=== PATIENT | female | born 1990 | race Caucasian/White ===

== ENCOUNTER 2020-05-05 04:24 | Inpatient (IN) | payer MEDICAID ==
[~2020-05-05] VITALS: Ht 154.9 cm; Wt 83.0 kg
[2020-05-05] MEDS ORDERED: DEXT 5%/LR + PITOCIN 20UNITS/L 1,000 ML IV SCH (05:38)
[2020-05-05] MEDS ORDERED: NALOXONE HCL 0.4 MG/ML 1ML VIAL IM PRN (05:45)
[2020-05-05] MEDS ORDERED: METHYLERGONOVINE MALEATE 0.2 MG/ML IM PRN (05:45)
[2020-05-05] MEDS ORDERED: BUTORPHANOL TARTRATE 2 MG/ML VIAL IV PRN (05:45)
[2020-05-05] MEDS ORDERED: LIDOCAINE HCL 1% 20ML VIAL (Pyxis) INJ INFIL SCH (05:45)
[2020-05-05] MEDS ORDERED: PREN-176 PO (05:45)
[2020-05-05] MEDS ORDERED: FERR-71 PO (05:45)
[2020-05-05] MEDS: LACTATED RINGERS 1,000 ML IV SCH ×2 (06:28→07:39)
[2020-05-05 07:25] LABS: BASOPHILS % 0.2 % (0.0-2.0); EOSINOPHILS % 0.6 % (0.0-5.0); HEMATOCRIT. 33.9 % (36.0-48.0); HEMOGLOBIN. 11.5 g/dL (12.0-16.0); LYMPHOCYTES % 17.4 % (20.0-50.0); MEAN CORPUSCULAR HEMOGLOBIN 30.6 pg (28.0-32.0); MEAN CORPUSCULAR VOLUME 90.4 fL (81.0-99.0); MEAN PLATELET VOLUME 10.1 fl (7.4-10.4); MONOCYTES % 5.7 % (2.0-8.0); NEUTROPHILS % 76.1 % (40.0-76.0); PLATELET 181 x1000/uL (130-400); RED BLOOD CELL COUNT 3.75 mill/uL (4.2-5.4); RED CELL DISTRIBUTION WIDTH 14.3 % (11.6-14.6)
[2020-05-05 07:28] LABS: CLARITY URINE CLEAR (CLEAR); COLOR URINE YELLOW (YELLOW); KETONES URINE NEGATIVE (NEGATIVE); LEUKOCYTE ESTERASE URINE 1+ (NEGATIVE); NITRITE URINE NEGATIVE (NEGATIVE); OCCULT BLOOD URINE 3+ (NEGATIVE); PROTEIN URINE NEGATIVE (NEGATIVE)
[2020-05-05 07:36] LABS: PARTIAL THROMBOPLASTIN TIME 31.1 sec (23.4-31.0); PROTHROMBIN TIME 10.2 sec (9.6-11.0)
[2020-05-05 07:40] LABS: *AMPHETAMINES SCREEN URINE NEGATIVE (NEGATIVE); *BARBITURATES SCREEN URINE NEGATIVE (NEGATIVE); *BENZODIAZEPINES SCREEN URINE NEGATIVE (NEGATIVE); *COCAINE SCREEN URINE NEGATIVE (NEGATIVE)
[2020-05-05 07:41] LABS: CANNABINOID URINE SCREEN NEGATIVE (NEGATIVE); METHADONE URINE SCREEN NEGATIVE (NEGATIVE); OPIATES URINE SCREEN NEGATIVE (NEGATIVE); PHENCYCLIDINE URINE SCREEN NEGATIVE (NEGATIVE)
[2020-05-05 08:36] LABS: HEPATITIS B SURFACE ANTIGEN NEGATIVE
[2020-05-05] MEDS ORDERED: LANOLIN OINT 7GM TUBE TOP PRN (14:15)
[2020-05-05] MEDS ORDERED: BISACODYL 10MG SUPP PR PRN (14:15)
[2020-05-05] MEDS ORDERED: IBUPROFEN 400MG TABLET PO PRN (14:15)
[2020-05-05] MEDS ORDERED: IBUPROFEN 800MG TABLET PO PRN (14:15)
[2020-05-05] MEDS ORDERED: DIPHENHYDRAMINE 25MG CAPSULE PO PRN (14:15)
[2020-05-05] MEDS ORDERED: GLYCERIN/WITCH HAZEL LEAF MEDICATED PAD TOP PRN (14:15)
[2020-05-05] MEDS ORDERED: HEMORRHOIDAL SUPP PR PRN (14:15)
[2020-05-05] MEDS: DEXT 5%/LR + PITOCIN 20UNITS/L 1,000 ML IV SCH ×2 (14:32→14:51)
[2020-05-05 15:45] VITALS: BP 96/54
[2020-05-05 16:45] VITALS: BP 95/51
[2020-05-05] MEDS: SIMETHICONE 80MG TABLET CHEW PO SCH ×2 (17:18→20:55)
[2020-05-05 20:00] VITALS: BP 103/54
[2020-05-05] MEDS ORDERED: DOCUSATE SODIUM 100MG CAPSULE PO SCH (21:00)
[2020-05-06 04:15] VITALS: BP 104/61
[2020-05-06] MEDS ORDERED: IBUP-2030 PO (07:02)
[2020-05-06 07:11] LABS: BASOPHILS % 0.2 % (0.0-2.0); HEMATOCRIT. 30.3 % (36.0-48.0); HEMOGLOBIN. 10.2 g/dL (12.0-16.0); LYMPHOCYTES % 18.2 % (20.0-50.0); MEAN CORPUSCULAR HEMOGLOBIN 30.8 pg (28.0-32.0); MEAN CORPUSCULAR VOLUME 90.8 fL (81.0-99.0); MEAN PLATELET VOLUME 10.1 fl (7.4-10.4); MONOCYTES % 5.8 % (2.0-8.0); NEUTROPHILS % 74.8 % (40.0-76.0); PLATELET 149 x1000/uL (130-400); RED BLOOD CELL COUNT 3.33 mill/uL (4.2-5.4); RED CELL DISTRIBUTION WIDTH 14.9 % (11.6-14.6)
[2020-05-06 07:45] VITALS: BP 103/74
[2020-05-06] MEDS: FERROUS SULFATE 325MG TABLET PO SCH ×2 (07:52→12:30)
[2020-05-06] MEDS: SIMETHICONE 80MG TABLET CHEW PO SCH (08:00)
[2020-05-06] MEDS ORDERED: MEDROXYPROGESTERONE ACETATE 150MG/ML VIAL IM SCH (08:00)
[2020-05-06] MEDS ORDERED: PRENATAL VIT/FE FUMARATE/FA TABLET PO SCH (09:00)
== END 2020-05-06 15:15 | disposition home or self-care (01) | DRG 560 ==
LOC: OBSVTOIN 04:24 → 8 EST LDRP 04:24 → 8EST 15:27
PROVIDERS: ADMIT Specialist; ATTEND Specialist
PROC: 10E0XZZ Delivery of Products of Conception, External Approach (ICD-10-PCS; principal; 2020-05-05)
PROC: 3E0R3BZ Introduction of Anesthetic Agent into Spinal Canal, Percutaneous Approach (ICD-10-PCS; 2020-05-05)
DX: O80 Encounter for full-term uncomplicated delivery (principal); Z37.0 Single live birth; Z3A.40 40 weeks gestation of pregnancy; Z79.899 Other long term (current) drug therapy
CPT/HCPCS: 36415; 80305; 81003; 85025; 86592; 86703; 86762; 86850; 86900; 87340; 99281; J0595; J1050; J2590; J3490

== ENCOUNTER 2024-11-05 23:52 | Emergency (ER) | payer MEDICAID ==
[~2024-11-05] VITALS: Ht 154.9 cm; Wt 82.0 kg
[~2024-11-05 23:52] MED LIST: FERR-71 PO; IBUP-2030 PO; PREN-176 PO
[2024-11-06 00:03] VITALS: O2SAT 99
[2024-11-06] MEDS: ACETAMINOPHEN 325MG TABLET PO ONE (02:16)
[2024-11-06] MEDS ORDERED: ACET-2708 MT (03:04)
[2024-11-06 03:48] VITALS: BP 148/89; PULSE 90; RESP 20; TEMP 36.8; O2SAT 99
== END 2024-11-06 03:30 | disposition home or self-care (01) ==
LOC: ER 11-06 00:10
DX: R07.81 Pleurodynia (principal); Z98.890 Other specified postprocedural states
CPT/HCPCS: 71045; 99283